=== PATIENT | male | born 1995 | race Caucasian/White ===

== ENCOUNTER 2022-07-06 14:36 | Emergency (ER) | payer OTHER, SELFPAY ==
[2022-07-06 14:37] VITALS: BP 150/86; PULSE 100; RESP 18; TEMP 35.6; O2SAT 100; BMI 36.1
--- NOTE | 2022-07-06 15:15 | EDS_ITS ---
HPI History of Present Illness Chief Complaint: Nausea/Vomiting Narrative Narrative: 26-year-old male here for nausea vomiting not sleeping well. Patient states he has been drinking alcohol approximately 2 beers a day for the past several days. States this is essentially normal for him. Denies any abdominal pain at this time. Denies any melena or hematochezia but does note diarrhea as well. Denies history of abdominal surgery. Denies any fever. Denies any drug use including marijuana. PFSH PFSH Medical History no medical history Home Medications metoclopramide HCl 5 mg tablet (Reglan) 5 mg PO Q8H PRN PRN nausea and vomiting 7 days #21 tabs 07/06/22 [Rx Last Taken Unknown] Allergy/AdvReac Type Severity Reaction Status Date / Time No Known Allergies Allergy Verified 07/06/22 14:37 Social History Smoking Status: Current every day smoker tobacco type: e-cigarettes ROS ROS ED ROS Narrative Constitutional: Denies fever HEENT: Denies sore throat Neck: Denies neck pain Cardiovascular: Denies chest pain, syncope Respiratory: Denies shortness of breath GI: Endorses nausea and vomiting : Denies changes in urinary habits Musculoskeletal: Denies muscle or joint pain Neurologic: Denies numbness weakness or loss of sensation Skin denies rash EXAM Physical Exam Narrative Exam Narrative: Nursing triage notes reviewed, Vital signs reviewed Constitutional: please see mdm HENT: MMM Eyes: Pupils equal round and reactive to light, Extraocular muscles intact Neck: No stridor, no JVD, full neck ROM Lungs: Clear to auscultation, No wheezing or rales. No increased work of breathing, no conversational dyspnea, no accessory muscle use, no nasal flaring. No respiratory distress noted Heart: Regular rate and rhythm, No murmurs, No rubs and No gallops, 2+ distal pulses (radial, femoral, posterior tibial) in all extremities Abdomen: Soft, there is no tenderness, rigidity, rebound or guarding, no obvious peritoneal signs, no palpable pulsatile abdominal masses, no auscultated abdominal bruit : No CVAT Extremities: No edema Neuro: No focal neurological deficits, cranial nerves II through XII intact, 5/5 strength in all extremities. Intact sensation to light touch in all extremities, 2+ reflexes bilateral patella dens. Normal gait. No ataxia. Skin: No rash or lesions noted Const Vital Signs: 07/06/22 14:37 Temperature 96.1 F L Temperature Source Temporal Pulse Rate 100 Respiratory Rate 18 Blood Pressure 150/86 H Blood Pressure Mean 107 Pulse Ox 100 Oxygen Delivery Method Room Air MDM MDM MDM Narrative Medical decision making narrative: Chief Complaint: Nausea vomiting External records reviewed: No recent adVance imaging of the abdomen or pelvis I considered the following differential diagnosis: Dehydration, electrolyte abnormality, intra-abdominal pathology, acute surgical pathology of the abdomen Patient abdominal exam was benign and not consistent with acute surgical intra- abdominal pathology. Patient no right quadrant tenderness, no Santiago sign is not jaundiced. He had no history abdominal surgeries. Treat the patient 1 L normal saline, and Reglan for nausea vomiting control. Labs were remarkable for nonspecific leukocytosis. There is no significant anemia, electrolyte abnormalities, signs of dehydration, pancreatitis, hepatobiliary pathology. Patient had no nausea vomiting here in the emergency department was discharged with Reglan, instructed to decrease alcohol use, instructions to follow-up with his primary care physician for further outpatient evaluation. Factors affecting care: None Social determinants of health: Poor health literacy History obtained from others: None Shared decision making: I will have a discussion with the patient and or visitors regarding risk/benefits of further testing or admission. They will be made aware of of the risk/benefits inherent in this decision they will be given the opportunity to voice understanding. Consults: None Lab Data Attestation: I reviewed the patient's lab results. Labs: Laboratory Results - last 24 hr 07/06/22 07/06/22 15:40 15:40 WBC 12.7 H RBC 4.98 Hgb 15.4 Hct 44.4 MCV 89.2 MCH 30.9 MCHC 34.7 RDW Std Deviation 39.6 RDW Coeff of Justyn 12.2 Plt Count 237 MPV 9.3 Immature Gran % (Auto) 0.400 Neut % (Auto) 91.8 H Lymph % (Auto) 3.2 L [place] % (Auto) 3.9 Eos % (Auto) 0.5 Baso % (Auto) 0.2 Absolute Neuts (auto) 11.7 H Absolute Lymphs (auto) 0.41 L Nucleated RBC % 0 Sodium 139 Potassium 3.8 Chloride 107 Carbon Dioxide 27.0 Anion Gap 5 BUN 21 H Creatinine 0.95 Estim Creat Clear Calc 122.73 Est GFR (MDRD) Af Amer 124 Est GFR (MDRD) Non-Af 102 BUN/Creatinine Ratio 22.2 H Glucose 103 Calcium 9.1 Total Bilirubin 0.90 AST 16 ALT 26 Alkaline Phosphatase 82 Total Protein 7.7 Albumin 4.2 Globulin 3.5 Albumin/Globulin Ratio 1.2 Lipase 21 EKG Initial EKG: Attestation: I personally reviewed and interpreted this EKG as follows: Comments: EKG with normal sinus rhythm normal axis, normal intervals, no STEMI Discharge Plan Triage Chief Complaint: Nausea/Vomiting ED Provider: Clifford Luis Dx/Rx/DC Orders Instructions: ED Vomiting (Adult) Prescriptions: New metoclopramide HCl [Reglan] 5 mg tablet 5 mg PO Q8H PRN PRN (Reason: nausea and vomiting) 7 Days Qty: 21 0RF Primary Care Provider: Care Physician,No Primary Referrals: NOT,DEFINED [Non-Staff] - Activity Restrictions/Additional Instructions: Thank you for trusting us with your care! Please take Tylenol, ibuprofen every 6 hours as needed for fever and pain control at home. Please take Reglan as prescribed for nausea and vomiting. Please return if he cannot tolerate medicine by mouth. Please follow-up with your primary care physician in the next billable appointment Disposition Disposition: Home, Self Care
--- NOTE | 2022-07-06 15:24 | EKG12_ITS ---
Test Reason : N/V Blood Pressure : / mmHG Vent. Rate : 083 BPM Atrial Rate : 083 BPM P-R Int : 150 ms QRS Dur : 090 ms QT Int : 356 ms P-R-T Axes : 020 019 014 degrees QTc Int : 418 ms Normal sinus rhythm Normal ECG Confirmed by JEFF RUELAS ([id number]), photography editor WAN REESE ([id number]) on 07/10/2022 8:03:08 AM Referred By: Confirmed By:JEFF RUELAS
[2022-07-06] MEDS: Metoclopramide 10 MG/2 ML Vial 5 MG IV (15:36)
[2022-07-06] MEDS: 0.9% Normal Saline 1,000 ML 1000 ML IV (15:36)
[2022-07-06 15:50] LABS: Absolute Lymphocyte Count 0.41 X10^3/uL (0.83-4.51); Absolute Neutrophil Count 11.7 X10^3/uL (2.0-7.7); Basophil# 0.03 X10^3/uL; Basophil% 0.2 % (0-1); Eosinophil# 0.06 X10^3/uL; Eosinophils% 0.5 % (0-5); Hematocrit 44.4 % (40-54); Hemoglobin 15.4 g/dL (13.0-16.5); Lymphocyte # 0.41 X10^3/ul (0.83-4.51); Lymphocyte % 3.2 % (19-41); Mean Corp Hgb Conc 34.7 g/dL (32-36); Mean Corpuscular Hgb 30.9 pg (27.0-32.0); Mean Corpuscular Volume 89.2 fL (80-94); Mean Platelet Vol. 9.3 fl (6.2-12.0); Monocyte# 0.49 X10^3/uL; Monocyte% 3.9 % (0-10); NRBC Flagged by Analyzer 0 % (0-5); Neutrophil # 11.65 X10^3/uL (2.7-7.7); Neutrophil % 91.8 % (47-70); POSITIVE DIFFERENTIAL YES; Platelet Count 237 K/mm3 (150-450); RBC Distribution Width CV 12.2 % (11.6-14.6); RBC Distribution Width SD 39.6 fl (35.1-43.9); Red Blood Count 4.98 M/mm3 (4.6-6.2); White Blood Count 12.7 K/mm3 (4.4-11.0)
[2022-07-06 16:03] LABS: Differential Indicated SCAN CRITERIA MET
[2022-07-06 16:06] LABS: ALB/GLOB Ratio 1.2 RATIO (0.9-2.4); AST(SGOT) 16 U/L (15-37); Alanine Aminotransfer ALT/SGPT 26 U/L (16-61); Albumin, Serum 4.2 g/dL (3.2-5.0); Alkaline Phosphatase 82 U/L (45-117); Anion Gap 5 (5-15); BUN 21 mg/dL (7-18); BUN/Creat Ratio 22.2 RATIO (10-20); Calcium,Total 9.1 mg/dL (8.5-10.1); Chloride 107 mmol/L (98-107); Creatinine, Serum 0.95 mg/dL (0.70-1.30); EST Glomerular Filtration Rate 102 mL/min (>60); Est Glom Filt Rate - Afr Amer 124 mL/min (>60); Estimated Creatinine Clearance 122.73 ml/min; Globulin 3.5 g/dL (2.2-4.2); Glucose 103 mg/dL (74-106); Lipase 21 U/L (13-75); Potassium 3.8 mmol/L (3.5-5.1); Protein, Total 7.7 g/dL (6.4-8.2); Sodium Level 139 mmol/L (136-145)
[2022-07-06 16:35] LABS: Differential Comment SCANNED
[2022-07-06 16:46] VITALS: BP 123/68; PULSE 78; RESP 16; O2SAT 97
== END 2022-07-06 16:49 | disposition home or self-care (01) ==
PROVIDERS: Emergency Provider Emergency Medicine; Visit Provider Emergency Medicine
DX: R11.2 Nausea with vomiting, unspecified (principal); F17.290 Nicotine dependence, other tobacco product, uncomplicated; Z55.0 Illiteracy and low-level literacy
CPT/HCPCS: 80053; 83690; 85025; 93005; 96361; 96374; 99285; J7030; A4216